=== PATIENT | male | born 1990 | race African-American/Black ===

== ENCOUNTER 2016-12-21 14:52 | Emergency (ER) | payer SELFPAY ==
[~2016-12-21] VITALS: Ht 190.5 cm; Wt 85.0 kg
[2016-12-21 14:54] VITALS: BP 168/73; PULSE 62; RESP 16; TEMP 97.7; O2SAT 98
== END 2016-12-21 17:10 | disposition left against medical advice (07) ==
LOC: NED 14:52
DX: F41.9 Anxiety disorder, unspecified (principal)
CPT/HCPCS: 99281